=== PATIENT | female | born 1965 | race Caucasian/White ===

== ENCOUNTER 2016-06-01 15:02 | Emergency (ER) | payer SELFPAY ==
[~2016-06-01] VITALS: Ht 165.1 cm; Wt 74.0 kg
[~2016-06-01 15:02] MED LIST: IOHEXOL-350 100 ML BOTTLE ONE; SODIUM CHLORIDE 0.9% 10ML VIAL ONE
[2016-06-01] MEDS ORDERED: SODIUM CHLORIDE 0.9% 1,000 ML IV ONE (20:26)
[2016-06-01] MEDS ORDERED: ONDANSETRON HCL 4MG/2ML VIAL IV ONE (20:30)
[2016-06-01] MEDS ORDERED: MORPHINE SULFATE 2 MG/ML CPJ (NOT FOR IM USE) IV ONE (20:30)
[2016-06-01 21:08] LABS: BASOPHILS % 0.9 % (0.0-2.0); HEMATOCRIT. 44.4 % (36.0-48.0); HEMOGLOBIN. 14.9 g/dL (12.0-16.0); LYMPHOCYTES % 23.4 % (20.0-50.0); MEAN CORPUSCULAR HEMOGLOBIN 27.8 pg (28.0-32.0); MEAN CORPUSCULAR HGB CONC 33.5 g/dL (31.0-37.0); MEAN PLATELET VOLUME 8.2 fl (7.4-10.4); MONOCYTES % 7.3 % (2.0-8.0); NEUTROPHILS % 60.4 % (40.0-76.0); PLATELET 230 x1000/uL (130-400); RED BLOOD CELL COUNT 5.36 mill/uL (4.2-5.4); RED CELL DISTRIBUTION WIDTH 14.3 % (11.6-14.6); WHITE BLOOD COUNT 10.8 x1000/uL (4.5-11.0)
[2016-06-01 21:25] LABS: ALANINE AMINOTRANSFERASE 33 IU/L (13-61); ALBUMIN 4.1 g/dL (3.4-5.0); ANION GAP 10; CALCIUM 9.3 mg/dL (8.5-10.1); CARBON DIOXIDE 30 mEq/L (21-32); CHLORIDE 107 mEq/L (98-107); INDEX HEMOLYSI 1 (1-3); INDEX ICTERIC 1 (1-4); INDEX LIPEMIC 1 (1-3); UREA NITROGEN BLOOD 9 mg/dL (7-21); eGFR > 60 mL/min (>60)
[2016-06-02 00:35] VITALS: BP 127/72
== END 2016-06-02 03:45 | disposition home or self-care (01) ==
LOC: ER 15:50
DX: S13.4XXA Sprain of ligaments of cervical spine, initial encounter (principal); M25.512 Pain in left shoulder; V49.49XA Driver injured in collision with other motor vehicles in traffic accident, initial encounter; S69.82XA Other specified injuries of left wrist, hand and finger(s), initial encounter; W22.11XA Striking against or struck by driver side automobile airbag, initial encounter; Y93.89 Activity, other specified; Y92.488 Other paved roadways as the place of occurrence of the external cause; R03.0 Elevated blood-pressure reading, without diagnosis of hypertension; J01.00 Acute maxillary sinusitis, unspecified; J32.0 Chronic maxillary sinusitis; R91.1 Solitary pulmonary nodule; Z88.0 Allergy status to penicillin; Y99.8 Other external cause status; Z88.1 Allergy status to other antibiotic agents
CPT/HCPCS: 36415; 70498; 72125; 73030; 73130; 80053; 85025; 96361; 96374; 96375; 99285; A4216; J2270; J2405; Q9967; J7030